=== PATIENT | female | born 1970 | race Caucasian/White ===

== ENCOUNTER → 2016-11-05 | Outpatient (CLI) | payer OTHER ==
--- OUTSIDE RECORDS SUMMARY | 2016-11-05 14:54 | XMS REPORT | Clinical Summary ---
Author Author Admin, MADI Organization [facility] Address Unknown Phone Unavailable Allergies, Adverse Reactions, Alerts Allergy Name Reaction Description Start Date Severity Status Provider PENICILLIN Critical Active Grey Snowden MD Conditions or Problems Problem Name Problem Code Onset Date Status Entry Date Provider Comment Standard Description Annotate FH DIABETES V18.0 Active Grey Snowden MD Family history of diabetes mellitus FIBROMYALGIA 729.1 Active Grey Snowden MD Myalgia and myositis, unspecified DEPRESSION 311 Active Grey Snowden MD Depressive disorder, not elsewhere classified CARPAL TUNNEL SYNDROME, LEFT 354.0 Active Grey Snowden MD Carpal tunnel syndrome INSOMNIA 780.52 Active Grey Snowden MD Insomnia, unspecified SINUSITIS, ACUTE 461.9 Active Grey Snowden MD Acute sinusitis, unspecified Hot flashes 627.2 Active Grey Snowden MD Symptomatic menopausal or female climacteric states Medication List Medication Instructions Start Date Stop Date Generic Name [facility] Status Provider Patient Instruction LUNESTA 2 MG TABS 1 po qHS PRN Insomnia ESZOPICLONE 67992219246 Active Grey Snowden MD Active LYRICA 75 MG CAPS 1 PO BID PREGABALIN 09627990035 Active Grey Snowden MD Active CYCLOBENZAPRINE HCL 10 MG TABS Take 1 tab TID PRN CYCLOBENZAPRINE HCL 20924396259 Active Grey Snowden MD Active PERCOCET 7.5-325 MG TABS take 1 tab po TID prn pain OXYCODONE- ACETAMINOPHEN 86446573119 Active Grey Snowden MD Active AMITRIPTYLINE HCL 150 MG TABS Take 1 tab po qhs for neuropathy AMITRIPTYLINE HCL 04808059687 Active Grey Snowden MD Active ZITHROMAX 250 MG TAB 2 po today, then 1 po q days 2-5 AZITHROMYCIN 87630569884 No Longer Active Grey Snowden MD Active CYMBALTA 60 MG CPEP 1 cap by mouth daily DULOXETINE HCL 85524993603 Active Grey Snowden MD Active ALPRAZOLAM 1 MG TABS 1 PO q 6 hrs PRN ALPRAZOLAM 83385301518 Active Grey Snowden MD Active ALPRAZOLAM 0.5 MG TABS 1 po tid ALPRAZOLAM 46840256853 No Longer Active Darwin CARTER Active TRAMADOL HCL 50 MG TABS 1-2 po q 6hr prn pain TRAMADOL HCL 52669959096 No Longer Active Darwin CARTER Active IBUPROFEN 800 MG TABS 1 tab q 8 hrs prn IBUPROFEN 98312595872 Active Grey Snowden MD Active ZOLPIDEM TARTRATE 10 MG TABS 1 po q hs ZOLPIDEM TARTRATE 18451202198 Active Grey Snowden MD Active PERCOCET 7.5-325 MG TABS 1tab po TID PRN pain OXYCODONE-ACETAMINOPHEN 82575107654 No Longer Active Darwin CARTER Active FLUTICASONE PROPIONATE 50 MCG/ACT SUSP 1 to 2 sprays each nostril qDay 09/04 FLUTICASONE PROPIONATE 19383826684 Active John Luna MD Active SAVELLA 50 MG TABS 1 tab po bid MILNACIPRAN HCL 25225776915 No Longer Active Sarah Soto MD PhD Active LYRICA 100 MG CAPS Take one by mouth 3 times daily, morning, afternoon and evening.] PREGABALIN 94984153764 No Longer Active Sarah Soto MD PhD Active ROPINIROLE HCL 1 MG TABS 1 q hs ROPINIROLE HCL 20025348785 No Longer Active Sarah Soto MD PhD Active AMOXICILLIN 500 MG CAPS 1 cap by mouth TID for 10 days AMOXICILLIN 17101062550 No Longer Active Sarah Soto MD PhD Active LUNESTA 1 MG TABS take 1 tab po qhs prn insomnia ESZOPICLONE 21455277888 No Longer Active Grey Snowden MD Active LUNESTA 2 MG TABS 1 po qHS PRN Insomnia ESZOPICLONE 58178024613 No Longer Active Grey Snowden MD Active OXYCONTIN 60 MG [id number] take 1 tab po BID OXYCODONE HCL Active Grey Snowden MD Active OXYCODONE-ACETAMINOPHEN 7.5-500 MG TABS take one tablet p.o. b.i.d. p.r.n. breakthrough pain OXYCODONE-ACETAMINOPHEN 84779801306 No Longer Active Grey Snowden MD Active OXYCONTIN 60 MG [id number] take one tablet p.o. b.i.d. OXYCODONE HCL 47343649379 No Longer Active Grey Snowden MD Active LORTAB 5-500 MG TABS 1 tab po qid HYDROCODONE-ACETAMINOPHEN 06326152628 No Longer Active Grey Snowden MD Active LORTAB 5-500 MG TABS 1 tab po qid LORTAB 5-500 MG TABS HYDROCODONE-ACETAMINOPHEN Inactive LUNESTA 1 MG TABS take 1 tab po qhs prn insomnia LUNESTA 1 MG TABS 135042 ESZOPICLONE Inactive AMOXICILLIN 500 MG CAPS 1 cap by mouth TID for 10 days AMOXICILLIN 500 MG CAPS 733055 AMOXICILLIN Inactive ROPINIROLE HCL 1 MG TABS 1 q hs ROPINIROLE HCL 1 MG TABS 329449 ROPINIROLE HCL Inactive LYRICA 100 MG CAPS Take one by mouth 3 times daily, morning, afternoon and evening.] LYRICA 100 MG CAPS PREGABALIN Inactive SAVELLA 50 MG TABS 1 tab po bid SAVELLA 50 MG TABS MILNACIPRAN HCL Inactive PERCOCET 7.5-325 MG TABS 1tab po TID PRN pain PERCOCET 7.5-325 MG TABS 4204341 OXYCODONE-ACETAMINOPHEN Inactive TRAMADOL HCL 50 MG TABS 1-2 po q 6hr prn pain TRAMADOL HCL 50 MG TABS 004920 TRAMADOL HCL Inactive ALPRAZOLAM 0.5 MG TABS 1 po tid ALPRAZOLAM 0.5 MG TABS 874107 ALPRAZOLAM Inactive OXYCONTIN 60 MG [id number] take one tablet p.o. b.i.d. OXYCONTIN 60 MG [id number] OXYCODONE HCL Inactive OXYCODONE-ACETAMINOPHEN 7.5-500 MG TABS take one tablet p.o. b.i.d. p.r.n. breakthrough pain OXYCODONE-ACETAMINOPHEN 7.5-500 MG TABS OXYCODONE-ACETAMINOPHEN Inactive LUNESTA 2 MG TABS 1 po qHS PRN Insomnia LUNESTA 2 MG TABS 260038 ESZOPICLONE Inactive ZITHROMAX 250 MG TAB 2 po today, then 1 po q days 2-5 ZITHROMAX 250 MG TAB 4380337 AZITHROMYCIN Inactive Vital Signs Date Name Value Unit Range Description blood pressure, diastolic - 8462-4 84 mm[Hg] BP corral blood pressure, systolic - 8480-6 118 mm[Hg] BP sys pulse rate E&M - 8867-4 92 /min Heart rate temperature E&M 98.0 [degF] Body temperature weight E&M - 3141-9 216 [lb_av] Weight Measured blood pressure, diastolic - 8462-4 75 mm[Hg] BP corral blood pressure, systolic - 8480-6 107 mm[Hg] BP sys height E&M - 8302-2 66 [in_us] Bdy height pulse rate E&M - 8867-4 101 /min Heart rate temperature E&M 98.1 [degF] Body temperature weight E&M - 3141-9 209.25 [lb_av] Weight Measured blood pressure, diastolic - 8462-4 85 mm[Hg] BP corral blood pressure, systolic - 8480-6 144 mm[Hg] BP sys height E&M - 8302-2 66 [in_us] Bdy height pulse rate E&M - 8867-4 103 /min Heart rate temperature E&M 98.2 [degF] Body temperature weight E&M - 3141-9 208 [lb_av] Weight Measured blood pressure, diastolic - 8462-4 87 mm[Hg] BP corral blood pressure, systolic - 8480-6 122 mm[Hg] BP sys height E&M - 8302-2 66 [in_us] Bdy height pulse rate E&M - 8867-4 120 /min Heart rate temperature E&M 98.9 [degF] Body temperature weight E&M - 3141-9 196 [lb_av] Weight Measured Diagnostic Results Date Name Value Unit Range Description Lab Report: ESTROGEN, TOTAL, SERUM - Chemistry estrogen, serum, total 300 pg/mL Lab Report: Thyroid Stimulating Hormone (L), Free Thyroxine (L) - Chemistry TSH 1.29 m[iU]/mL 0.36-3.74 thyroxine, serum, free 0.80 ng/dL 0.76-1.46 Encounters Code Encounter Date Provider Facility CPT-81942 Level 4 Est. Patient 16:55:12 CDT Grey Snowden MD [facility] CPT-73483 Level 4 Est. Patient 10:04:20 DATA RECOVERY PLANNER Grey Snowden MD [facility] CPT-20076 Level 3 Est. Patient 18:10:45 CDT Darwin CARTER [facility] CPT-38193 Level 4 Est. Patient 14:21:46 CDT Sarah Soto MD PhD [facility] CPT-98842 Level 3 Est. Patient 12:57:38 CDT Grey Snowden MD [facility] CPT-22373 Level 3 Est. Patient 12:25:41 DATA RECOVERY PLANNER Grey Snowden MD [facility] CPT-56423 Level 3 Est. Patient 18:34:04 DATA RECOVERY PLANNER Grey Snowden MD [facility]
--- NOTE | 2016-11-05 15:22 | Diagnostic Imaging Report ---
EXAMINATION: Right shoulder, 2 views. COMPARISON: None. INDICATION: 46-year-old female, right shoulder pain. FINDINGS: There is no obvious malalignment of the humeral head relative to the glenoid on this two-view exam. The glenohumeral joint is unremarkable in appearance. The acromioclavicular joint is normally aligned. There is no identified acute fracture. There are no acromioclavicular degenerative changes. IMPRESSION: 1. Unremarkable radiographs of the right shoulder. Dictated by: Dictated on workstation # [id number]
== END ==
LOC: RAD 14:50
PROVIDERS: ATTEND Nurse Practitioner Family
DX: M25.511 Pain in right shoulder (principal)
CPT/HCPCS: 73030

== ENCOUNTER 2019-01-21 16:46 | Emergency (ER) | payer OTHER ==
[~2019-01-21] VITALS: Ht 167.6 cm; Wt 79.4 kg
[2019-01-21] MEDS ORDERED: NS IV 1000 ML 1,000 ML IV SCH (17:02)
[2019-01-21 17:12] LABS: BILIRUBIN,URINE NEGATIVE (NEGATIVE); CLARITY,URINE CLEAR; COLOR,URINE YELLOW; GLUCOSE, URINE (UA) NEGATIVE (NEGATIVE); KETONES,URINE NEGATIVE (NEGATIVE); LEUKOCYTE ESTERASE ,URINE NEGATIVE (NEGATIVE); NITRITE,URINE NEGATIVE (NEGATIVE); PH,URINE 6 (5-9); PROTEIN,URINE NEGATIVE (NEGATIVE); UROBILINOGEN,URINE NORMAL (NORMAL)
[2019-01-21 17:14] LABS: BASOPHILS % (AUTO) 0 % (0-10); EOSINOPHILS # (AUTO) 0.1 10^3/uL (0.0-0.3); EOSINOPHILS % (AUTO) 1 % (0-10); HEMATOCRIT 43 % (35-52); HEMOGLOBIN 15.1 G/DL (11.5-16.0); LYMPHOCYTES # (AUTO) 1.7 X 10^3 (1.0-4.0); LYMPHOCYTES % (AUTO) 22 % (12-44); MEAN CORPUSCULAR HEMOGLOBIN 35 PG (25-34); MEAN CORPUSCULAR HGB CONC 35 G/DL (32-36); MEAN CORPUSCULAR VOLUME 100 FL (80-99); MEAN PLATELET VOLUME 10.6 FL (7.4-10.4); MONOCYTES # (AUTO) 0.5 X 10^3 (0.0-1.0); MONOCYTES % (AUTO) 6 % (0-12); NEUTROPHILS # (AUTO) 5.6 X 10^3 (1.8-7.8); NEUTROPHILS % (AUTO) 70 % (42-75); PLATELET COUNT 199 10^3/uL (130-400); RED CELL DISTRIBUTION WIDTH 13.2 % (10.0-14.5); WHITE BLOOD COUNT 7.9 10^3/uL (4.3-11.0)
[2019-01-21] MEDS ORDERED: LIDOCAINE 2% VISCOUS 15 ML UDC PO ONE (17:15)
[2019-01-21] MEDS ORDERED: ANTACID SUSP 30 ML UDC (MYLANTA) PO ONE (17:15)
[2019-01-21 17:19] LABS: BACTERIA,URINE NEGATIVE /HPF
[2019-01-21 17:25] LABS: AMPHETAMINE SCREEN, URINE NEGATIVE (NEGATIVE); BARBITURATE SCREEN URINE NEGATIVE (NEGATIVE); BENZODIAZEPINES SCREEN URINE POSITIVE (NEGATIVE); CANNABINOID SCREEN, URINE NEGATIVE (NEGATIVE); COCAINE SCREEN URINE NEGATIVE (NEGATIVE); METHADONE STAT NEGATIVE (NEGATIVE); METHAMPHETAMINE SCREEN URINE S NEGATIVE (NEGATIVE); OPIATE SCREEN URINE POSITIVE (NEGATIVE); OXYCODONE STAT NEGATIVE (NEGATIVE); PROPOXYPHENE STAT NEGATIVE (NEGATIVE); TRICYCLIC ANTIDEPRESSANTS SCRE NEGATIVE (NEGATIVE)
[2019-01-21 17:29] LABS: ALANINE AMINOTRANSFERASE 535 U/L (0-55); ALKALINE PHOSPHATASE 171 U/L (40-136); BILIRUBIN,TOTAL 0.9 MG/DL (0.1-1.0); BUN/CREATININE RATIO 11; CALCIUM 9.1 MG/DL (8.5-10.1); CARBON DIOXIDE 20 MMOL/L (21-32); CHLORIDE 105 MMOL/L (98-107); CREATININE SERUM 0.97 MG/DL (0.60-1.30); GFR ESTIMATED > 60; GLUCOSE 165 MG/DL (70-105); MAGNESIUM 1.9 MG/DL (1.8-2.4); POTASSIUM 3.3 MMOL/L (3.6-5.0); SALICYLATE < 5.0 MG/DL (5.0-20.0); SODIUM 136 MMOL/L (135-145); TOTAL PROTEIN 6.3 GM/DL (6.4-8.2)
--- NOTE | 2019-01-21 17:32 | ED General ---
General Chief Complaint: Dizziness/Syncope Stated Complaint: CONFUSED Nursing Triage Note: PT ARRIVED PER EMS PT CO OF SYNCOPAL EPISODE AT DR OFFICE IN [facility]. PT HAD CONFUSION UPON AWAKENING. STATES SHE HAS BEEN CONFUSED FOR A COUPLE WEEKS, PT STATES HAS ABD PAIN AND DIARRHEA FOR WEEKS.PT HAS SL IN PLACE IN L AC BY EMS Nursing Sepsis Screen: No Definite Risk Source of Information: Patient Exam Limitations: No Limitations (SEMAJ SINGH MD) History of Present Illness Date Seen by Provider: Jan 21, 2019 Time Seen by Provider: 17:00 Initial Comments Here with report of syncopal episode at her doctor's office. Apparently per the , patient has been dizzy and not acting right for the last week. He states that she's been confused actually for a couple weeks. Patient reports that she is having vomiting and diarrhea every time she eats. Apparently she was going to her doctor today for check for that when she got to the doctor's office she passed out. She is from [place] and sees her doctor in [place], [place]. She apparently did not want to go to the hospital. EMS was summoned after she passed out. No reported injury. was with her when she passed out and assisted her. She did not get to see the doctor because she passed out before the appointment. No bowel or bladder incontinence. Patient is on a variety of meds for fibromyalgia. Timing/Duration: 1 Week, Getting Worse Severity: Moderate Associated Systoms: No Cough, No Fever/Chills, No Headaches; Nausea/Vomiting; No Shortness of Air; Weakness (SEMAJ SINGH MD) Allergies and Home Medications Allergies Coded Allergies: No Known Drug Allergies (Unverified , 01/21/19) Patient Home Medication List Home Medication List Reviewed: Yes (SEMAJ SINGH MD) Review of Systems Review of Systems Constitutional: see HPI; No chills, No fever, No malaise, No weakness EENTM: no symptoms reported Respiratory: No cough, No short of breath Cardiovascular: No chest pain, No edema Gastrointestinal: abdominal pain (epigastric), diarrhea; No hematemesis; nausea , vomiting Genitourinary: no symptoms reported : No Psychiatric/Neurological: Anxiety, Depressed, Weakness, Other (dizziness) ( SEMAJ SINGH MD) All Other Systems Reviewed Negative Unless Noted: Yes (SEMAJ SINGH MD) Past Bpcrpyy-Lsdqcu-Ukrfyl Hx Past Med/Social Hx: Reviewed Nursing Past Med/Soc Hx (SEMAJ SINGH MD) Patient Social History Alcohol Use: Denies Use Recreational Drug Use: No Smoking Status: Current Everyday Smoker Recent Foreign Travel: No Contact w/Someone Who Travel: No Recent Infectious Disease Expo: No (SEMAJ ISNGH MD) Past Medical History Surgeries: Yes Gallbladder, Hysterectomy Respiratory: No Cardiac: No Neurological: No 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 oz. 79.832175ho; BMI Method:Estimated General Appearance: No Apparent Distress, WD/WN HEENT: PERRL/EOMI, TMs Normal, Pharynx Normal Neck: Non Tender, Supple Respiratory: Lungs Clear, Normal Breath Sounds Cardiovascular: Regular Rate, Rhythm, No Murmur Gastrointestinal: Non Tender, Soft Back: Normal Inspection, No CVA Tenderness, No Vertebral Tenderness Extremity: Normal Inspection, Normal Range of Motion, Non Tender Neurologic/Psychiatric: Alert, Other (slurred speech with slight confusion. Able to answer questions and follow commands appropriately. Confused as to current situation and events) Skin: Normal Color, Warm/Dry (SEMAJ SINGH MD) Progress/Results/Core Measures Suspected Sepsis Recent Fever Within 48 Hours: No Infection Criteria Present: None New/Unexplained Altered Menta: No Sepsis Screen: No Definite Risk SIRS Temperature:97.1 Pulse: 93 Respiratory Rate: 18 Laboratory Tests 01/21/19 16:55: White Blood Count 7.9 Blood Pressure 155 /89 Mean: 111 Laboratory Tests 01/21/19 16:55: Creatinine 0.97, INR Comment 1.2, Platelet Count 199, Total Bilirubin 0.9 (SEMAJ SINGH MD) Results/Orders Lab Results Laboratory Tests Test 01/21/19 16:55 01/21/19 17:07 01/21/19 18:05 Range/Units White Blood Count 7.9 4.3-11.0 10^3/uL Red Blood Count 4.33 L 4.35-5.85 10^6/uL Hemoglobin 15.1 11.5-16.0 G/DL Hematocrit 43 35-52 % Mean Corpuscular Volume 100 H 80-99 FL Mean Corpuscular Hemoglobin 35 H 25-34 PG Mean Corpuscular Hemoglobin Concent 35 32-36 G/DL Red Cell Distribution Width 13.2 10.0-14.5 % Platelet Count 199 130-400 10^3/uL Mean Platelet Volume 10.6 H 7.4-10.4 FL Neutrophils (%) (Auto) 70 42-75 % Lymphocytes (%) (Auto) 22 12-44 % Monocytes (%) (Auto) 6 0-12 % Eosinophils (%) (Auto) 1 0-10 % Basophils (%) (Auto) 0 0-10 % Neutrophils # (Auto) 5.6 1.8-7.8 X 10^3 Lymphocytes # (Auto) 1.7 1.0-4.0 X 10^3 Monocytes # (Auto) 0.5 0.0-1.0 X 10^3 Eosinophils # (Auto) 0.1 0.0-0.3 10^3/uL Basophils # (Auto) 0.0 0.0-0.1 10^3/uL Prothrombin Time 15.2 H 12.2-14.7 SEC INR Comment 1.2 0.8-1.4 Activated Partial Thromboplast Time 31 24-35 SEC Sodium Level 136 135-145 MMOL/L Potassium Level 3.3 L 3.6-5.0 MMOL/L Chloride Level 105 98-107 MMOL/L Carbon Dioxide Level 20 L 21-32 MMOL/L Anion Gap 11 5-14 MMOL/L Blood Urea Nitrogen 11 7-18 MG/DL Creatinine 0.97 0.60-1.30 MG/DL Estimat Glomerular Filtration Rate > 60 BUN/Creatinine Ratio 11 Glucose Level 165 H 70-105 MG/DL Calcium Level 9.1 8.5-10.1 MG/DL Corrected Calcium 9.1 8.5-10.1 MG/DL Magnesium Level 1.9 1.8-2.4 MG/DL Total Bilirubin 0.9 0.1-1.0 MG/DL Aspartate Amino Transf (AST/SGOT) 612 H 5-34 U/L Alanine Aminotransferase (ALT/SGPT) 535 H 0-55 U/L Alkaline Phosphatase 171 H 40-136 U/L Troponin I < 0.028 <0.028 NG/ML C-Reactive Protein High Sensitivity 0.34 0.00-0.50 MG/DL Total Protein 6.3 L 6.4-8.2 GM/DL Albumin 4.0 3.2-4.5 GM/DL Amylase Level 49 25-125 U/L Lipase 14 8-78 U/L TSH [place] Testing 0.38 0.35-4.94 UIU/ML Salicylates Level < 5.0 L 5.0-20.0 MG/DL Acetaminophen Level 51 *H 10-30 UG/ML Serum Alcohol < 10 <10 MG/DL Urine Color YELLOW Urine Clarity CLEAR Urine pH 6 5-9 Urine Specific [place] 1.005 L 1.016-1.022 Urine Protein NEGATIVE NEGATIVE Urine Glucose (UA) NEGATIVE NEGATIVE Urine Ketones NEGATIVE NEGATIVE Urine Nitrite NEGATIVE NEGATIVE Urine Bilirubin NEGATIVE NEGATIVE Urine Urobilinogen NORMAL NORMAL MG/DL Urine Leukocyte Esterase NEGATIVE NEGATIVE Urine RBC (Auto) NEGATIVE NEGATIVE Urine RBC NONE /HPF Urine WBC NONE /HPF Urine Squamous Epithelial Cells 5-10 /HPF Urine Crystals NONE /LPF Urine Bacteria NEGATIVE /HPF Urine Casts NONE /LPF Urine Mucus NEGATIVE /LPF Urine Culture Indicated NO Urine Opiates Screen POSITIVE H NEGATIVE Urine Oxycodone Screen NEGATIVE NEGATIVE Urine Methadone Screen NEGATIVE NEGATIVE Urine Propoxyphene Screen NEGATIVE NEGATIVE Urine Barbiturates Screen NEGATIVE NEGATIVE Ur Tricyclic Antidepressants Screen NEGATIVE NEGATIVE Urine Phencyclidine Screen NEGATIVE NEGATIVE Urine Amphetamines Screen NEGATIVE NEGATIVE Urine Methamphetamines Screen NEGATIVE NEGATIVE Urine Benzodiazepines Screen POSITIVE H NEGATIVE Urine Cocaine Screen NEGATIVE NEGATIVE Urine Cannabinoids Screen NEGATIVE NEGATIVE Ammonia 26 11-32 UMOL/L (CONCHA,MILLIE K DO) My Orders Orders - CONCHA,MILLIE K DO Pantoprazole Injection (Protonix Injecti (01/21/19 17:45) 1/2 Ns W/Kcl 20 Meq/L (0.45% Sodium Chlo (01/21/19 17:45) Ammonia (01/21/19 17:52) Hepatitis Panel Acute (01/21/19 17:54) Acetylcysteine Injection (Acetadote Inje (01/21/19 18:00) Pantoprazole Injection (Protonix Injecti (01/21/19 17:46) Acetylcysteine Injection (Acetadote Inje (01/21/19 19:15) Acetylcysteine Injection (Acetadote Inje (01/21/19 23:15) Nicotine Patch (Nicoderm Patch) (01/21/19 18:30) Ct Abdomen/Pelvis W (01/21/19 18:42) Iohexol Injection (Omnipaque 350 Mg/Ml 1 (01/21/19 19:30) Received Contrast (Hold Metformin- Contr (01/21/19 19:30) Ondansetron Injection (Zofran Injectio (01/21/19 19:30) Amylase (01/21/19 20:45) Lipase (01/21/19 20:45) Protime With Inr (01/21/19 20:45) Partial Thromboplastin Time (01/21/19 20:45) Ekg Tracing (01/21/19 21:15) Monitor-Rhythm Ecg Trace Only (01/21/19 21:15) Troponin I (01/21/19 21:16) Chest 1 View, Ap/Pa Only (01/21/19 21:16) (MILLIE MILLER DO) Medications Given in ED Current Medications Medications Dose Ordered Sig/Chasity Route Start Time Stop Time Status Last Admin Dose Admin Acetylcysteine 3950 mg/Dextrose/ Water 519.75 ml @ 129.938 mls/hr UD ONCE IV 01/21/19 19:15 01/21/19 23:14 DC 01/21/19 19:34 129.938 MLS/HR Iohexol 100 ml ONCE ONCE IV 01/21/19 19:30 01/21/19 19:31 DC 01/21/19 19:50 100 ML Ondansetron HCl 8 mg ONCE ONCE IVP 01/21/19 19:30 01/21/19 19:31 DC 01/21/19 19:34 8 MG (MILLIE MILLER DO) Vital Signs/I&O (MILLIE MILLER DO) Vital Signs/I&O Capillary Refill : Less Than 3 Seconds (SEMAJ SINGH MD) Blood Pressure Mean: 111 Progress Note : Progress Note Seen and evaluated. IV, labs, UA, UDS, CT head ordered. Normal saline 1 L bolus. Monitor patient. 1731: Care transferred to Dr. Miller pending labs and CT. (SEMAJ SINGH MD) Progress Note : Progress Note 1731--ASSUMED CARE FROM DR. SINGH, LAB AND CT PENDING. REPORTS THAT IN ADDITION TO PT'S REGULAR MEDICATIONS (MANY OF THEM SEDATING, INCLUDING OXYCODONE --RX FOR 30 DAY SUPPLY OF #120 PILLS ON ) PT ALSO TAKES UNKNOWN AMOUNTS OF TYLENOL PM PT IS NOT A RELIABLE HISTORIAN AT THIS TIME--SHE STATES SHE "DOESN'T TAKE THAT MUCH" BUT IS UNABLE TO STATE HOW MANY SHE HAS TAKEN RECENTLY OR WHEN SHE LAST TOOK THEM. NO DETERIORATION IN PT'S CONDITION DURING ER STAY (MILLIE MILLER DO) ECG Initial ECG Impression Date: Jan 21, 2019 Initial ECG Impression Time: 21:15 Initial ECG Rate: 58 Initial ECG Rhythm: Normal Sinus Initial ECG Comparisson: No Previous ECG Available (MILLIE MILLER DO) Diagnostic Imaging Comments CT HEAD--NO ACUTE PROCESS, PER RADIOLOGIST REPORT @ 1738 CT ABDOMEN/PELVIS-FATTY LIVER, NO ACUTE PROCESS, PER RADIOLOGIST REPORT @ 2012 CXR-- Reviewed: Reviewed by Me (MILLIE MILLER DO) Departure Communication (Admissions) 2029--INFORMED THIS FACILITY IS NOW ON FULL DIVERSION 2029--CALLED [facility], PT PREFERENCE. 2039--SPOKE WITH DR. ARZATE, HOSPITALIST, ACCEPTS PT FOR ADMIT. 2229--CALLED [facility], STILL NO BED ASSIGNMENT 2245--CALLED [facility], STILL NO BED ASSIGNMENT 2340--[facility] NOW HAS BED. EMS CONTACTED FOR TRANSPORT. (MILLIE MILLER DO) Impression Primary Impression: Syncope Additional Impressions: Altered mental status Acute liver failure Hypokalemia Acetaminophen toxicity Disposition: 02 XFER SHT-TRM HOSP Condition: Stable Transfer Transfer Facility: [facility] Method of Transfer: EMS (MILLIE MILLER DO) Departure-Patient Inst. Referrals: NO,LOCAL PHYSICIAN (PCP/Family) Primary Care Physician SEMAJ SINGH MD Jan 21, 2019 17:32 MILLIE MILLER DO Jan 21, 2019 17:40
--- NOTE | 2019-01-21 17:32 | Diagnostic Imaging Report ---
PROCEDURE: CT head without contrast. TECHNIQUE: Multiple contiguous axial images were obtained through the brain without the use of intravenous contrast. INDICATION: Confusion and headache. COMPARISON: No prior studies are available for comparison. FINDINGS: The ventricles and sulci are within normal limits. No sulcal effacement, midline shift, or hemorrhage is detected. Cisterns are patent. Visualized paranasal sinuses are clear. IMPRESSION: No acute intracranial process is detected. Dictated by: Dictated on workstation # [id number]
[2019-01-21] MEDS ORDERED: PANTOPRAZOLE 40 MG (PROTONIX) VIAL IV ONE (17:45)
[2019-01-21] MEDS ORDERED: 1/2 NS W/KCL 20 MEQ/L 1,000 ML IV SCH (17:45)
[2019-01-21] MEDS ORDERED: PANTOPRAZOLE 40 MG (PROTONIX) VIAL ONE (17:46)
[2019-01-21 17:48] LABS: ACETAMINOPHEN 51 UG/ML (10-30)
[2019-01-21 17:49] LABS: TSH (THYROID ANALYZER) 0.38 UIU/ML (0.35-4.94)
[2019-01-21] MEDS ORDERED: D5W IV ONE ×3 (18:00→23:15)
[2019-01-21] MEDS ORDERED: ACETYLCYSTEINE IV ONE ×3 (18:00→23:15)
[2019-01-21] MEDS ORDERED: NICOTINE 21 MG (NICODERM) PATCH TD ONE (18:30)
--- NOTE | 2019-01-21 19:00 | NUR ---
REPORT TO DENZEL SIMPSON
[2019-01-21] MEDS ORDERED: HOLD METFORMIN - RECEIVED CONTRAST 20 ML VIAL IV SCH (19:30)
[2019-01-21] MEDS ORDERED: ONDANSETRON 4 MG/2 ML (SDV) Z0FRAN IVP ONE (19:30)
[2019-01-21] MEDS ORDERED: IOHEXOL 350 MG/ML 100 ML (OMNIPAQUE 350) VIAL IV ONE (19:30)
--- NOTE | 2019-01-21 20:03 | Diagnostic Imaging Report ---
PROCEDURE: CT abdomen and pelvis with contrast. TECHNIQUE: Multiple contiguous axial images were obtained through the abdomen and pelvis after administration of intravenous contrast. INDICATION: Abdominal pain, getting progressively worse. COMPARISON: None available. FINDINGS: Lower chest: The lung bases are clear. No pericardial or pleural effusion. Peritoneum: No free intraperitoneal air or fluid. Liver and biliary system: Diffuse hypoattenuation of the liver raises the possibility of mild diffuse hepatic steatosis. No focal hepatic lesion. Cholecystectomy. No biliary duct dilatation. Spleen and Pancreas: Spleen is normal. The pancreas enhances normally without mass lesion or peripancreatic inflammatory changes. Adrenals: Normal. tract: The kidneys enhance normally without suspicious mass or obstruction. Urinary bladder is distended without wall thickening. Hysterectomy. No adnexal mass. GI tract: Stomach is decompressed. No bowel obstruction. No pericolonic inflammatory changes. Normal appendix. Vasculature and Lymph nodes: Normal caliber aorta. No abdominal or pelvic lymphadenopathy. Musculoskeletal: No concerning osseous lesion. IMPRESSION: 1. No acute obstructive or inflammatory process in the abdomen or pelvis. 2. Potential mild diffuse hepatic steatosis. 3. Cholecystectomy and hysterectomy. Dictated by: Dictated on workstation # [id number]
--- NOTE | 2019-01-21 21:39 | Diagnostic Imaging Report ---
CHEST 1 VIEW, AP/PA ONLY Indication: Syncope Comparison: None available. Findings: No focal airspace disease in the visualized lungs. Please note that the posterior lower lobes are poorly evaluated by portable radiography. No pleural effusion or pneumothorax. Normal cardiomediastinal silhouette. Impression: No acute cardiopulmonary process by portable radiography. Dictated by: Dictated on workstation # [id number]
[2019-01-21 21:48] LABS: INR 1.2 (0.8-1.4); PROTHROMBIN TIME PATIENT 15.2 SEC (12.2-14.7)
[2019-01-21 21:56] LABS: AMYLASE 49 U/L (25-125); LIPASE 14 U/L (8-78)
--- NOTE | 2019-01-22 00:09 | NUR ---
AFTER SEVERAL INSTANCES WITH THE PT'S IV MEDS STOPPING THE INFUSION D/T DISTAL OCCLUSION, IT WAS REPORTED TO THIS NURSE BY NEELAM SALGADO THAT THE PT WAS WITNESSED TAMPERING WITH THE IV TUBING TO FORCE AN ALARM TO SOUND, PT WOULD THEN DEMAND FOOD OR TO BE ALLOWED TO SMOKE A CIGARETTE EVEN THOUGH SHE WAS ADVISED THIS IS A NO SMOKING FACILITY AND SHE IS TO REMAIN NPO PER PROVIDERS ORDERS
[2019-01-22 01:09] VITALS: BP 149/84
[2019-01-23 07:43] LABS: HEPATITIS C ANTIBODY C Non-Reactive (Non-Reactive)
== END 2019-01-22 01:15 | disposition short-term general hospital (02) ==
LOC: EDUNIT# 16:46 → ER 16:48
DX: R55 Syncope and collapse (principal); R41.82 Altered mental status, unspecified; K72.00 Acute and subacute hepatic failure without coma; E87.6 Hypokalemia; T39.1X1A Poisoning by 4-Aminophenol derivatives, accidental (unintentional), initial encounter; F17.200 Nicotine dependence, unspecified, uncomplicated; Z90.710 Acquired absence of both cervix and uterus; Z98.890 Other specified postprocedural states
CPT/HCPCS: 36415; 70450; 71045; 74177; 80053; 80074; 80306; 80320; 80329; 81000; 82140; 82150; 83690; 83735; 84443; 84484; 85025; 85610; 85730; 86141; 93005; 93041; 96361; 96365; 96366; 96375